=== PATIENT | female | born 1955 | race Caucasian/White ===

== ENCOUNTER → 2020-06-26 09:20 | Outpatient (CLI) | payer MEDICARE, SELFPAY ==
--- NOTE | ~2020-06-26 | US_ITS ---
EXAMINATION: US thyroid DATE: 06/26/2020 09:36 INDICATION: Nontoxic single thyroid nodule TECHNIQUE: Multiple ultrasound images of the thyroid were obtained. COMPARISON: 03/06/2018 FINDINGS: The right thyroid lobe measures 5.3 x 1.7 x 1.5 cm. The left thyroid lobe measures 5.1 x 2.8 x 2.2 c m. 3.2 x 2.7 x 2.3 cm wider than tall predominant solid heterogeneously isoechoic nodule with smooth margins and without echogenic foci in the left thyroid (TI-RADS 3, mildly suspicious, FNA if >=2.5 c m, annual followup is >1.5 cm). This nodule has been previously biopsied with pathology read as mariel gn follicular nodule however has increased in size by greater than 20% in each dimension from previo us measurements of 2.6 x 2.1 x 1.8. 1.2 cm wider than tall solid hypoechoic nodule without echogenic foci in the smooth margins. (TI-RADS 4, moderately suspicious , FNA if >=1.5 cm, annual followup is > 1 cm) in the superior right thyroid lobe. Smaller 1 cm and 5 mm solid isoechoic TI RADS 3 nodules in the right thyroid lobe. There is normal echotexture, echogenicity and vascular flow throughout the th yroid gland. IMPRESSION: 1. Multinodular goiter. Consider ultrasound-guided rebiopsy of the 3.2 cm TI RADS 3 left thyroid nodu le which was previously biopsied demonstrating benign follicular nodule but which has significantly increased in size since the most recent study. Reviewed, dictated and finalized at location . AL CEO IMPRESSION: 1. Multinodular goiter. Consider ultrasound-guided rebiopsy of the 3.2 cm TI RA DS 3 left thyroid nodule which was previously biopsied demonstrating benign fo llicular nodule but which has significantly increased in size since the most r ecent study.
== END ==
PROVIDERS: Visit Provider Nurse Practitioner
DX: E04.2 Nontoxic multinodular goiter (principal)
CPT/HCPCS: 76536

== ENCOUNTER → 2020-10-14 09:10 | Outpatient (CLI) | payer MEDICARE, SELFPAY ==
--- NOTE | ~2020-10-14 | XR_ITS ---
EXAMINATION: XR lumbar spine min 4V DATE: 10/14/2020 09:28 INDICATION: Low back pain TECHNIQUE: Anteroposterior, lateral, and bilateral oblique views of the lumbar spine, and cone-down l ateral view of the lumbosacral junction were obtained. COMPARISON: 11/23/2016 FINDINGS: There are 2 mm of stable retrolisthesis of L5 on S1. Vertebral body alignment is otherwise takes maintained. There is mild loss of intervertebral disc space height throughout the lumbar spine. The vertebral body heights are normal. No fracture is identified. Small degenerative osteophytes pro ject from the anterior endplates of multiple vertebral bodies. There is mild facet osteoarthritis of the lower lumbar spine. The bowel gas pattern is normal. IMPRESSION: 1. Mild lumbar spondylosis without acute findings or significant interval change. Reviewed, dictated and finalized at location A. NESS RULES DEVELOPER IMPRESSION: 1. Mild lumbar spondylosis without acute findings or significant interval josefina andre
== END ==
PROVIDERS: PCP Family Medicine; Visit Provider Nurse Practitioner
DX: M47.896 Other spondylosis, lumbar region (principal)
CPT/HCPCS: 72110

== ENCOUNTER 2020-11-22 15:00 | Outpatient (RCR) | payer MEDICARE, SELFPAY ==
--- NOTE | 2020-10-21 10:47 | PTOPEVAL ---
Thank you for referring Aram Crawford to [facility].? The patient is scheduled to be seen for therapy? 2x/week for 6 weeks. Please review, sign, date and return this plan of care ABHINAV. I agree with and certify that the following plan of care is medically necessary. Referring Physician Date Attending Provider: Henna Carrera NP Physical Therapy Evaluation Diagnosis yaritza knee pain and back pain Onset 5 months with progression in the past 4 weeks Additional Evaluation Detail no therapy after knee surgery on 06/09/19 Subjective Information She reports limitations with Query Text:As Reported By Patient/ prolonged sitting. She reports Family increased symptoms or pain with walking, negotiating steps, squating, lifting objects, and carrying objects. She has trouble getting off the floor. She c/o sharp pain in the front of her right with various movements. She has trouble getting out of the tub if seated in the tub. 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 She sleeps on her stomach, denies pain in the morning. She is walking her neighborhood in the nice weather. She is only perform seated hamstring stretch and standing hip extension for her exercise. Diagnostic Tests X-Rays For This Problem Yes: Mild lumbar spondylosis Previous Treatments Previous Treatments For This Problem no Pain Assessment Self Report Pain Assessment Left Knee(s) Reported Pain Level 7 Pain Description Aching,Throbbing Pain Frequency Chronic,Continuous Lowest Pain Intensity 2 Greatest Pain Intensity 9 Pain Aggravating Factors ADL's,Bending,Exercise/ Activity,Lifting,Prolonged Position,Sitting,Stair Climbing,Walking,Weight Bearing/Standing Pain Behaviors None Right Knee(s) Reported Pain Level 2 Pain Description Aching,Throbbing Pain Frequency Chronic,Continuous Lowest Pain Intensity 2 Greatest Pain Intensity 8 Pain Aggravating Factors Bending,Exercis
--- NOTE | 2020-11-04 09:28 | PCPTNOTE ---
Patient called and cancelled today's session due to having family in town.
--- NOTE | 2020-11-08 09:01 | PCPTNOTE ---
Patient did not show up for scheduled appointment this date. Called and left message for Pt about missed appointment and upcoming appointment on 11/10/20 @ 16:15. Reminded Pt to please call if unable to make appointment, this is Pt's first N/S.
--- NOTE | 2020-11-22 15:47 | PTOPEVAL ---
Thank you for referring Aram Crawford to [facility].? Aram has attended 7 therapy visit with 2 no show/cancelled visits to address back and knee pain. She demonstrates improved strength of legs and trunk, improved pain and tolerance with daily task. She is indep with her home exercises at this time. She has achieved her therapy goals. Will plan to D/C skilled therapy with [facility] to continue with exercise and home management of pain as needed. Please review, sign, date and return this discharge summary ABHINAV. I agree with and certify that the following plan of care is medically necessary. Referring Physician Date Attending Provider: Henna Carrera NP Physical therapy discharge Note Diagnosis yaritza knee pain and back pain Onset 5 months with progression in the past 4 weeks Additional Evaluation Detail no therapy after knee surgery on 06/09/19 Subjective Information She has not had any knee pain Query Text:As Reported By Patient/ since last week following the Family ice and TENS application. She had a f/u with MD, but no injections given due to improved pain. Reports improved pain and tolerance with walking, standing and steps. She denies any significant limitations with getting on/ off the floor. She was able to take her grandkids to the park and walk without difficulty. Reports only occasional radiating pain into right thigh. Pain Assessment Self Report Pain Assessment Left Knee(s) Reported Pain Level 0 Lowest Pain Intensity 0 Greatest Pain Intensity 0 Right Knee(s) Reported Pain Level 1 Lowest Pain Intensity 0 Greatest Pain Intensity 1 Lower Back Reported Pain Level 1 Lowest Pain Intensity 0 Greatest Pain Intensity 1 Cervical and Lumbar ROM Lumbar ROM Lumbar Flexion Active Floor Lumbar ROM WNL Lumbar Comments no pain with trunk motions Cervical and Lumbar Muscle Testing Upper Abdominal Strength 4 Good Upper Back Extension 4-Good- Lower Back Extension 4-Good- Lower Extremity Muscle Strength Testing Hip Strength Left Hip Flexion Strength 5 Normal Hip Extension Strength 5 Normal Hip Abduction Strength 4- Good - Right Hip Flexion Strength 5 Normal Hip Extension Strength 5 Normal Hip Abduction Strength 3+ Fair + Knee S
== END 2020-11-23 08:10 | disposition home or self-care (01) ==
LOC: ANHPT 15:00
PROVIDERS: PCP Family Medicine; Visit Provider Nurse Practitioner
DX: M54.5 Low back pain (principal); M25.561 Pain in right knee; M25.562 Pain in left knee
CPT/HCPCS: 97014; 97110; 97112; 97140; 97162; G0283

== ENCOUNTER 2021-01-26 13:05 | Outpatient (CLI) | payer MEDICARE, SELFPAY ==
--- NOTE | ~2021-01-26 | US_ITS ---
EXAMINATION: US FNA w image guidance DATE: 01/26/2021 14:59 INDICATION: Enlarging left thyroid mass TECHNIQUE: A time-out was performed to verify the patient's name, date of , and procedure to be performed . The procedure and its benefits and risks were discussed with the patient. Risks specifically discus sed included bleeding and infection. The patient understood the risks and agreed to proceed. The neck was prepped and draped in the usual sterile manner. 3 mL 1% lidocaine was used for local anesthesia . 6 passes were made with a 25G needle into the lesion. Appropriate needle location was documented with continuous sonographic guidance. The specimens were passed to the dairy technologist in the room. A sterile bandage was applied. There were no immediate complications. FINDINGS: Grayscale ultrasound images demonstrate biopsy needles advanced into a 3.2 cm solid left thyroid mass . IMPRESSION: 1. Successful ultrasound-guided fine needle aspiration of the enlarging 3.2 cm TI RADS 3 solid left thyroid mass of concern. Reviewed, dictated and finalized at location A.
== END 2021-01-26 13:06 | disposition home or self-care (01) ==
PROVIDERS: PCP Family Medicine; Visit Provider Otolaryngology
DX: E04.1 Nontoxic single thyroid nodule (principal)
CPT/HCPCS: 10005; 88173; 88305

== ENCOUNTER 2021-12-27 16:43 | Outpatient (CLI) | payer MEDICARE, SELFPAY ==
--- NOTE | ~2021-12-27 | DEXA_ITS ---
Bone Density Report Name: ANNA VALENTIN Age: 66 Sex: Female Ethnicity: White Date of : 1955 Indication: postmenopausal; screening for osteoporosis; Referring Provider: MELONIE DOUGLAS Study: Bone densitometry was performed. Exam Date: December 27, 2021 Accession number: [id number] Bone Density: Region BMD T-score Z-score Classification AP Spine(L1-L4) 1.086 0.4 2.4 Normal Femoral Neck (Left) 0.853 0.0 1.8 Normal Total Hip (Left) 0.984 0.3 1.8 Normal Femoral Neck (Right) 0.814 -0.3 1.4 Normal Total Hip (Right) 1.003 0.5 1.9 Normal Total Hip Mean 0.993 0.4 1.9 Normal World Health Organization criteria for BMD impression classify patients as: Normal (T-score at or above -1.0), Osteopenia (T-score between -1.0 and -2.5), or Osteoporosis (T-score at or below -2.5). 10-year Fracture Risk: FRAX not reported because: All T-scores for Spine Total, Hip Total, Femoral Neck at or above -1.0 Previous Exams: Region Exam Age BMD T-score BMD Change BMD Change Date g/cm2 vs Baseline vs Previous AP Spine (L1-L4) 12/27/2021 66 1.086 0.4 0.039 (3.8%)* 0.039 (3.8%)* 01/20/2019 63 1.046 0.0 Total Hip(Left) 12/27/2021 66 0.984 0.3 -0.050 (-4.9%) -0.050 (-4.9%) 01/20/2019 63 1.035 0.8 Total Hip(Right) 12/27/2021 66 1.003 0.5 0.013 (1.3%) 0.013 (1.3%) 01/20/2019 63 0.989 0.4 *Denotes significance at 95% confidence level, LSC for AP Spine = 0.022 g/cm2, LSC for Total Hip = 0.027 g/cm2 Clinical Information Provided by Patient: Has used the following medications: Vitamin D Patient maximum height was 62 Menopause Age: 48 No regular weight bearing exercise Drinks caffeinated beverages Onset of menses at age 9 Number of children 2 Impression: The patient has normal bone mass. The BMD for the Total Hip(Left) decreased, changing by -4.9% since the last DXA exam. Discussion: BONE DENSITY IS ABOVE THE MINIMUM DESIRABLE LEVEL AT ALL SKELETAL SITES TESTED. This patient?s bone mineral density is above the minimum desirable level (T-score -1.0 or better) at all sites measured. The patient should follow a healthful lifestyle (good nutrition with adequate calcium and vitamin D, and appropriate weight-bearing exercise). Follow-Up: Consider repeating this study in 3 to 4 years to reassess this patient's status, or sooner if there is some new clinical indication. Reported by: ROSY on 12/27/2021 5:16:00 PM.
--- NOTE | ~2021-12-27 | MM_ITS ---
EXAMINATION: MM screening lucie BI w rachelle HISTORY: Screening mammogram TECHNIQUE: Craniocaudal and mediolateral oblique 3-D tomosynthesis images were obtained and synthetic 2-D images were generated. CAD analysis was submitted and interpreted. COMPARISON: 01/20/2019, 09/18/2014, 09/15/2013 bilateral screening mammogram examinations BREAST PARENCHYMAL COMPOSITION: There are scattered areas of fibroglandular density. FINDINGS: There are focal asymmetries in the posterior outer breast on craniocaudal views. Diagnostic mammography is recommended, with ultrasound if required. IMPRESSION: 1. Bilateral posterior outer mammographic asymmetries 2. Bilateral diagnostic mammography is recommended, with ultrasound if required BI-RADS Category 0: Incomplete: Needs additional imaging evaluation. Reviewed, dictated and finalized at location A.
== END 2021-12-27 16:44 | disposition home or self-care (01) ==
PROVIDERS: PCP Family Medicine; Visit Provider Nurse Practitioner Family
DX: Z12.31 Encounter for screening mammogram for malignant neoplasm of breast (principal); Z78.0 Asymptomatic menopausal state; R92.8 Other abnormal and inconclusive findings on diagnostic imaging of breast
CPT/HCPCS: 77063; 77067; 77080

== ENCOUNTER 2022-01-13 12:44 | Outpatient (CLI) | payer MEDICARE, SELFPAY ==
--- NOTE | ~2022-01-13 | MM_ITS ---
EXAMINATION: MM diagnostic lucie BI w rachelle HISTORY: Bilateral breast asymmetries on screening mammogram TECHNIQUE: Additional 3-D tomosynthesis images of the breasts were performed and synthetic 2-D images were generated. CAD analysis was submitted and interpreted. COMPARISON: 12/07/2021, 01/20/2019, 09/18/2012, 09/15/2013 FINDINGS: There is a return to baseline fibroglandular appearance with spot compression of the breast s in the areas questioned on screening mammogram. IMPRESSION: 1. No mammographic evidence of malignancy. 2. Recommend routine screening mammography in one year. BI-RADS Category 1: Negative Reviewed, dictated and finalized at location A.
== END 2022-01-13 12:45 | disposition home or self-care (01) ==
LOC: ANHIMG 12:45
PROVIDERS: PCP Family Medicine; Visit Provider Nurse Practitioner Family
DX: R92.8 Other abnormal and inconclusive findings on diagnostic imaging of breast (principal)
CPT/HCPCS: 77062; 77066; G0279

== ENCOUNTER 2022-04-16 15:49 | Emergency (ER) | payer MEDICARE, SELFPAY ==
--- NOTE | ~2022-04-16 | XR_ITS ---
EXAM: XR_CERV2-3V_CR DATE: 04/16/2022 17:20 HISTORY: POSTERIOR L NECK PAIN RADIATES DOWN ARM X 2 DAYS NO INJURY . COMPARISON: None available. FINDINGS: Craniocervical association and atlantoaxial joint are normal. No prevertebral soft tissue swelling. Reversed lordosis. Multilevel grade 1 listheses, presumably on a degenerative basis. Modera te degenerative disc disease at C5-6. Vertebral body heights and are maintained. Multilevel facet scl erosis and hypertrophy. IMPRESSION: No acute fracture or traumatic malalignment in the cervical spine. Degenerative changes d escribed above. Reviewed, dictated and finalized at location K. IMPRESSION: No acute fracture or traumatic malalignment in the cervical spine. Degenerative changes described above.
--- NOTE | ~2022-04-16 | XR_ITS ---
EXAM: XR thoracic spine 3V DATE: 04/16/2022 17:20 HISTORY: POSTERIOR UPPER LEFT BACK PAIN X 2 DAYS NO INJURY . COMPARISON: None available. FINDINGS: Vertebral body alignment intact. Vertebral body heights preserved. Multilevel degenerative disc disease. No traumatic malalignment or fracture. Visualized lung parenchyma is clear. IMPRESSION: No acute fracture or traumatic malalignment in the thoracic spine. Reviewed, dictated and finalized at location K.
[2022-04-16 15:52] VITALS: BP 167/75; PULSE 84; RESP 16; TEMP 36.7; O2SAT 98
--- NOTE | 2022-04-16 16:58 | ED.BACK ---
HPI - Back Pain/Injury General Chief Complaint: Extremity Injury, Upper Stated Complaint: Covid booster on , severe arm/shoulder cate Time Seen by Provider: 04/16/22 16:09 Source: patient Mode of arrival: ambulatory Limitations: no limitations History of Present Illness HPI Narrative: This is a 67 year old female that presents to the ER for left sided upper back pain present over the last couple of days. No known injury or trauma. The pain is a constant ache. Improved with certain positions. Denies decreased ROM or numbness. Related Data Home Medications Medication Instructions Recorded Confirmed meloxicam 15 mg tablet 15 mg PO DAILY PRN 06/16/21 06/16/21 Allergies Allergy/AdvReac Type Severity Reaction Status Date / Time tetracycline Allergy Unknown Unknown Verified 06/16/21 09:43 Review of Systems Review of Systems: CONSTITUTIONAL: Denies fever CARDIOVASCULAR: Denies chest pain SKIN: Denies rash MUSCULOSKELETAL: Reports back pain, joint pain, and myalgia. NEUROLOGIC: Denies numbness, or weakness. All systems reviewed & are unremarkable except as noted in HPI and below PMFSH Past Medical History Medical History (Updated 04/16/22 @ 18:58 by Vivi Sarah PA-C) Enlarged thyroid Restless leg syndrome Thyroid Nodule u/s - 03/2018 Vertigo Vitamin D deficiency Surgical History Surgical History H/O section History of knee surgery History of tonsillectomy Family History Family History Mother Family history of congestive heart failure Father Family history of congestive heart failure Other Family history of Parkinson's disease Family history of cardiovascular disease Hypertension Social History Social History Smoking status: Never smoker Second hand tobacco smoke exposure: No Smoking end date: 08/06/95 Alcohol intake: current Exam Narrative: GENERAL: Well-appearing, well-nourished, and in no acute distress. HEAD: Normocephalic, atraumatic. EYES: EOMI. CHEST: Clear to auscultation. No respiratory distress. No wheezes rales or rhonchi HEART: Regular rate and rhythm. No murmur heard. Normal peripheral pulses. BACK: Tender to palpation of the left thoracic paraspinal musculature EXTREMITIES: Normal range of motion. No edema or erythema. Strength equal in bilateral upper extremities (5/5) SKIN: Warm, dry, no rash. NEURO: No focal deficits. Alert and oriented x3. PSYCH: Normal mood and affect Course Vital Signs Vital signs: Vital Signs Temperature 98.1 F 04/16/22 15:52 Pulse Rate 84 04/16/22 15:52 Respiratory Rate 16 04/16/22 15:52 Blood Pressure 167/75 H 04/16/22 15:52 Pulse Oximetry 98 04/16/22 15:52 Oxygen Delivery Room Air 04/16/22 15:52 Temperature 98.1 F 04/16/22 15:52 Pulse Rate 84 04/16/22 15:52 Respiratory Rate 16 04/16/22 15:52 Blood Pressure 167/75 H 04/16/22 15:52 Pulse Oximetry 98 04/16/22 15:52 Oxygen Delivery Room Air 04/16/22 15:52 MDM - Back Pain/Injury MDM Narrative Medical decision making narrative: Patient presents to the ER for left sided mid back pain present over the last couple of days. No recent injury or trauma. Patient is neurovascularly intact. Denies any chest pain or shortness of breath. X-rays of the thoracic spine without acute findings. X-rays of the cervical spine show muscle spasming and degenerative changes. Patient was updated on case findings. Reports improvement with Tylenol, Toradol and Valium. She is stable and felt appropriate for further outpatient evaluation. Instructed to have close follow-up with her primary doctor. She was given warnings to return to the ER Imaging Data Radiologist's impression: ITS Impressions Cervical Spine X-Ray 04/16/22 18:07 IMPRESSION: No acute fracture or traumatic malalignm
[2022-04-16] MEDS: diazePAM INJ (*CRX) 10 MG/2 ML SYRINGE 5 MG IM (17:19)
[2022-04-16] MEDS: KETOROLAC 30 MG/ML VIAL (*BKC) IM (17:19)
[2022-04-16] MEDS: ACETAMINOPHEN 500 MG TABLET 1000 MG PO (17:19)
== END 2022-04-16 19:11 | disposition home or self-care (01) ==
PROVIDERS: Emergency Provider Emergency Medicine; PCP Family Medicine
DX: M62.838 Other muscle spasm (principal); M50.33 Other cervical disc degeneration, cervicothoracic region
CPT/HCPCS: 72040; 72072; 96372; 99284; A9270; J1885; J3360

== ENCOUNTER 2022-05-05 14:15 | Outpatient (RCR) | payer MEDICARE, SELFPAY ==
--- NOTE | 2022-05-05 16:54 | PTOPEVAL1 ---
Assessment and note entered by Georges Jones, PT, DPT Evaluation Information Assessment Status Evaluation Diagnosis L shoulder pain Subjective Information Pt states on a she got a Covid vaccine, she states by Sunday her pain was so bad she went to the emergency room. She states the ED game her a combination of pain medication and nothing worked, her ROOFING SUPERVISOR also gave her medication without relief. She states she has tried ice, heat, chiropractic, muscle relaxers, and multiple prescribed steroid packs and nothing has helped. She states her arm, shoulder, and now her neck are all in a constant pain. She report getting 2-3 hours of consistent sleep a night. She states she cries daily d/t the pain. She does report when her arm is over her head she gets some relief. Reported Pain Level Pain Score 9: Self Report Assessment PT Clinical Summary Aram is a 67 y/o who is previously healthy who presents to therapy today for her initial evaluation with a diagnosis of a strain of the L arm and shoulder. She demonstrations yaritza shoulder strength that is WNL, shoulder, elbow, wrist, and cervical ROM that is all WNL, she declines numbness or tingling. She demonstrates normal mobility with passive cervical ROM and with intervertebral side glides. Today she demonstrates pain that can be reproduced, but is being reproduced with inappropriate provocation test. She reports decreased pain when her arm is placed on top of her head, but no other tests to rule in thoracic outlet syndrome are positive. She reports tenderness to palpation of her extensor carpi radialis but this pain is not altered with resistance or overpressure. Continuation of skilled physical therapy services are indicated to further investigate her symptoms and to help ruling in/out a mechanical cause of her symptoms. Plan of Care Interventions Electrical Stimulation,Hot Pack/Cold Pack,Manual Therapy,Neuro Re-education,Patient/Caregiver Educati,Therapeutic Activities,Therapeutic Exercise PT Services Indicated Yes Treatment Frequency and 1x/wk for 4 wks Duration These treatments will address the objective and functional deficits as defined above. The patient will be advanced safely and appropriately in order for the patient to progress towards his/her prior level of function. Additional exercises will be introduced and as well as a comprehensive home exercise program upon di
--- NOTE | 2022-06-02 09:01 | PCPTNOTE ---
Patient called & cancelled scheduled appointment this date due to having to watch her grandchild.
--- NOTE | 2022-07-12 08:38 | PTOPDC ---
Assessment and note entered by Georges Jones, PT, DPT Evaluation Information Assessment Status Discharge - Pt Not Present Diagnosis L shoulder pain Subjective Information Called and spoke with patient, she states she is no longer having pain and does not need to return to therapy. Assessment PT Clinical Summary Aram completed her physical therapy evaluation on 05/05/22 and did not complete any treatments. She will be discharged at this time.
== END 2022-07-12 09:12 | disposition home or self-care (01) ==
LOC: ANHGOSHPT 14:15
PROVIDERS: PCP Family Medicine; Visit Provider Nurse Practitioner Family
DX: S46.812D Strain of other muscles, fascia and tendons at shoulder and upper arm level, left arm, subsequent encounter (principal)
CPT/HCPCS: 97162

== ENCOUNTER 2022-08-14 08:32 | Day surgery (SDC) | payer MEDICARE, SELFPAY ==
[2022-07-18 11:24] VITALS: BMI 27.6
[2022-07-25 08:51] VITALS: BMI 27.5
--- NOTE | 2022-08-11 08:37 | P.PNAN_ITS ---
Anes - Initial Pre Proc Eval Procedure: Operation Date: 08/14/22 10:30 Proposed Procedures p Screening Colonoscopy - Fredy Garza MD Date/Time: 08/11/22 08:37 Surgeon: Fredy Garza MD Pre Op Diagnosis: Neoplasm Screening Patient Data Age: 67 Gender: F Height: 1.55 m Weight: 66 kg Allergies Allergy/AdvReac Type Severity Reaction Status Date / Time tetracycline Allergy Unknown Unknown Verified 08/14/22 09:14 Home Medications Medication Instructions Recorded Confirmed Type cholecalciferol (vitamin D3) 50 100 mcg PO DAILY #90 caps 06/20/21 07/25/22 Rx mcg (2,000 unit) capsule sodium,potassium,mag sulfates 17.5 See Rx Instructions PO .COMPLEX 07/18/22 07/25/22 Rx gram-3.13 gram-1.6 gram oral soln #354 mL (Suprep Bowel Prep Kit) ropinirole 0.5 mg tablet 0.5 mg PO TID #270 tabs 07/24/22 07/25/22 Rx Patient hx anesthesia problems: none Family hx anesthesia problems: none Results Review: All pre-operative results and documents have been reviewed as part of the pre- operative evaluation. [facility] Past Medical History Medical History Enlarged thyroid Restless leg syndrome Thyroid Nodule u/s - 03/2018 Vertigo Vitamin D deficiency Surgical History Surgical History H/O section History of knee surgery History of tonsillectomy Family History Family History Mother Family history of congestive heart failure Father Family history of congestive heart failure Other Family history of Parkinson's disease Family history of cardiovascular disease Hypertension Social History Social History Smoking status: Former smoker Tobacco type: cigarettes Second hand tobacco smoke exposure: No Smoking end date: 08/06/95 Alcohol intake: current Alcohol use details: rarely Substance use: never Substance use type: does not use Living arrangements: with family Gender identity (if verbalized by the patient): Female Spiritual care concerns: No Agree to blood products: Yes Anes - Eval Final PreProcedure Day of Procedure 08/11/22 08:37 Patient weight: overweight Heart: regular rate and rhythm Lungs: clear to auscultation Airway: Mallampati scale class II Neurological: alert and oriented Last oral intake: >/= 8 hours ASA classification: II Emergent: no Anesthetic plan: proceed Anesthesia type and monitoring: general GIVS and standard monitoring Results Review: All pre-operative results and documents have been reviewed as part of the pre- operative evaluation. Informed Consent: The patient's anesthetic plan and its attendant risks and benefits were discussed with the patient/family/POA. Questions were solicited and answers provided to the satisfaction of the patient/family/POA.
[2022-08-14 09:10] VITALS: BP 99/74; PULSE 93; RESP 20; TEMP 36.1; O2SAT 100
[2022-08-14] MEDS: LACTATED RINGERS 1,000 ML 150 ML IV CONT (09:30)
--- NOTE | 2022-08-14 09:32 | PM.HPGS ---
History of Present Illness History of Present Illness Consent: Risks, benefits, and alternatives have been discussed and questions answered. Patient agrees to proceed with procedure. Chief complaint: Neoplasm Screening Narrative: Aram Crawford is a 67 year old female Presents for screening colonoscopy. She patient's current weight appetite and bowel movements are normal. Patient denies abdominal pain. She has had no bleeding. Family history is noncontributory. Patient's previous colonoscopy 2009 was unremarkable. Review of Systems Review of Systems: Review of systems noncontributory. [facility] Past Medical History Medical History Enlarged thyroid Restless leg syndrome Thyroid Nodule u/s - 03/2018 Vertigo Vitamin D deficiency Surgical History Surgical History H/O section History of knee surgery History of tonsillectomy Family History Family History Mother Family history of congestive heart failure Father Family history of congestive heart failure Other Family history of Parkinson's disease Family history of cardiovascular disease Hypertension Social History Social History Smoking status: Former smoker Tobacco type: cigarettes Second hand tobacco smoke exposure: No Smoking end date: 08/06/95 Alcohol intake: current Alcohol use details: rarely Substance use: never Substance use type: does not use Living arrangements: with family Gender identity (if verbalized by the patient): Female Spiritual care concerns: No Agree to blood products: Yes Meds Home Medications and Allergies Home Medications Medication Instructions Recorded Confirmed Type cholecalciferol (vitamin D3) 50 100 mcg PO DAILY #90 caps 06/20/21 07/25/22 Rx mcg (2,000 unit) capsule sodium,potassium,mag sulfates 17.5 See Rx Instructions PO .COMPLEX 07/18/22 07/25/22 Rx gram-3.13 gram-1.6 gram oral soln #354 mL (Suprep Bowel Prep Kit) ropinirole 0.5 mg tablet 0.5 mg PO TID #270 tabs 07/24/22 07/25/22 Rx Allergies Allergy/AdvReac Type Severity Reaction Status Date / Time tetracycline Allergy Unknown Unknown Verified 08/14/22 09:14 Vital Signs Vital Signs - 24 hr 08/14/22 09:10 Temperature 97.0 F L Pulse Rate 93 Respiratory Rate 20 Blood Pressure 99/74 L Pulse Oximetry 100 Oxygen Delivery Room Air Exam Narrative: Physical exam reveals patient to be alert. Vital signs stable. HEENT exam is unremarkable. Patient is anicteric. Lungs are clear to auscultation and percussion. Heart is without murmur or extra sounds. Abdomen bowel sounds present soft nontender with no organomegaly. Digital external rectal exam is normal. Assessment and Plan Assessment and plan (1) Encounter for screening colonoscopy: Code(s): Z12.11 - Encounter for screening for malignant neoplasm of colon Status: Acute Assessment and Plan: Patient presents today for screening colonoscopy. She appears to be at average risk for colon polyps. Further recommendations may be given after endoscopy.
[2022-08-14 10:30] VITALS: BP 116/63; PULSE 82; RESP 20; O2SAT 98
[2022-08-14 10:45] VITALS: BP 106/76; PULSE 85; RESP 18; O2SAT 100
[2022-08-14 10:50] VITALS: BP 126/76; PULSE 79; RESP 18; O2SAT 100
--- NOTE | 2022-08-14 12:19 | WPDANESPN ---
Anes - Prog Note Post-Op Date/Time: 08/14/22 12:19 Cardiovascular status: normal Respiratory status: normal Airway patency: baseline Mental status: baseline Post-Op hydration status: normal Vital Signs: Last Vital Signs Temp 36.1 C L 08/14/22 09:10 Pulse 79 08/14/22 10:50 Resp 18 08/14/22 10:50 BP 126/76 08/14/22 10:50 Pulse Ox 100 08/14/22 10:50 O2 Del Method Room Air 08/14/22 10:50 Pain Score (VAS): 0 Post-procedural complaints: none Patient Feedback: Patient satisfied with anesthetic care. Other Findings: Patient vital signs back to baseline. Patient denies nausea and vomiting. Patient's pain under control. Patient OK for discharge.
== END 2022-08-14 11:13 | disposition home or self-care (01) ==
PROVIDERS: PCP Family Medicine; Visit Provider Internal Medicine Gastroenterology
PROC: 0DJD8ZZ Inspection of Lower Intestinal Tract, Via Natural or Artificial Opening Endoscopic (ICD-10-PCS; CPT 45378; principal; 2022-08-14 10:30)
DX: Z12.11 Encounter for screening for malignant neoplasm of colon (principal)
CPT/HCPCS: 45385

== ENCOUNTER 2022-08-14 09:00 | Outpatient (NON) | payer MEDICARE, SELFPAY | END 2022-08-14 09:01 | disposition home or self-care (01) | LOC: ANHLAB 08-15 08:17 | PROVIDERS: PCP Family Medicine; Visit Provider Internal Medicine Gastroenterology | DX: Z12.11 Encounter for screening for malignant neoplasm of colon (principal) | CPT/HCPCS: 88305 ==

== ENCOUNTER 2023-09-07 12:43 | Outpatient (CLI) | payer MEDICARE, SELFPAY ==
--- NOTE | ~2023-09-07 | US_ITS ---
EXAMINATION: US FNA w image guidance DATE: 09/07/2023 13:33 INDICATION: Nontoxic single thyroid nodule. TECHNIQUE: The procedure and its benefits and risks were discussed with the patient. Risks specifically discusse d included bleeding. The patient verbalized understanding of the risks and agreed to proceed. The nec k was prepped and draped in the usual sterile manner. 1% lidocaine was used for local anesthesia. S ix passes were made with a 25G needle into the lesion under ultrasound guidance. There were no immed iate complications. FINDINGS: Grayscale ultrasound images demonstrate needles advanced into a 3.5 cm nodule in left thyroid lobe fo r biopsy. IMPRESSION: 1. Ultrasound-guided fine needle aspiration of a left thyroid nodule. Reviewed, dictated and finalized at location A. [address]
== END 2023-09-07 12:44 | disposition home or self-care (01) ==
PROVIDERS: PCP Family Medicine; Visit Provider Otolaryngology
DX: E04.1 Nontoxic single thyroid nodule (principal)
CPT/HCPCS: 10005; 88172; 88173; 88305

== ENCOUNTER 2024-06-10 15:39 | Outpatient (CLI) | payer MEDICARE, SELFPAY ==
--- NOTE | ~2024-06-10 | MM_ITS ---
EXAMINATION: MM screening lucie BI w rachelle HISTORY: Screening TECHNIQUE: Craniocaudal and mediolateral oblique 3-D tomosynthesis images were obtained and synthetic 2-D images were generated. CAD analysis was submitted and interpreted. COMPARISON: Comparison to multiple prior studies sequentially, with oldest reviewed study dated 09/18. BREAST PARENCHYMAL COMPOSITION: Not dense: There are scattered areas of fibroglandular density. FINDINGS: There is no evidence of suspicious mass, calcification, or architectural distortion to sugg est malignancy in either breast. There has been no suspicious interval change. IMPRESSION: 1. No mammographic evidence of malignancy. 2. Recommend routine screening mammography in one year. BI-RADS Category 1: Negative Reviewed, dictated and finalized at location B. [facility]
== END 2024-06-10 15:40 | disposition home or self-care (01) ==
LOC: ANHIMG 15:40
PROVIDERS: PCP Family Medicine; Visit Provider Nurse Practitioner
DX: Z12.31 Encounter for screening mammogram for malignant neoplasm of breast (principal)
CPT/HCPCS: 77063; 77067

== ENCOUNTER 2025-01-20 09:47 | Outpatient (CLI) | payer MEDICARE, SELFPAY ==
--- NOTE | ~2025-01-20 | DEXA_ITS ---
Bone Density Report Name: ANNA VALENTIN Age: 69 Sex: Female Ethnicity: White Date of : 1955 Indication: postmenopausal; screening for osteoporosis; Referring Provider: MELONIE DOUGLAS Study: Bone densitometry was performed. Exam Date: January 20, 2025 Accession number: [id number] Bone Density: Region BMD T-score Z-score Classification AP Spine(L1-L4) 1.046 0.0 2.2 Normal Femoral Neck (Left) 0.842 -0.1 1.8 Normal Total Hip (Left) 1.027 0.7 2.3 Normal Femoral Neck (Right) 0.850 0.0 1.9 Normal Total Hip (Right) 0.984 0.3 2.0 Normal Total Hip Mean 1.006 0.5 2.2 Normal World Health Organization criteria for BMD impression classify patients as: Normal (T-score at or above -1.0), Osteopenia (T-score between -1.0 and -2.5), or Osteoporosis (T-score at or below -2.5). 10-year Fracture Risk: FRAX not reported because: All T-scores for Spine Total, Hip Total, Femoral Neck at or above -1.0 Previous Exams: Region Exam Age BMD T-score BMD Change BMD Change Date g/cm2 vs Baseline vs Previous AP Spine (L1-L4) 01/20/2025 69 1.046 0.0 0.000 (0.0%) -0.040 (-3.6%) 12/27/2021 66 1.086 0.4 0.039 (3.8%)* 0.039 (3.8%)* 01/20/2019 63 1.046 0.0 Total Hip(Left) 01/20/2025 69 1.027 0.7 -0.007 (-0.7%) 0.043 (4.4%)* 12/27/2021 66 0.984 0.3 -0.050 (-4.9%) -0.050 (-4.9%) 01/20/2019 63 1.035 0.8 Total Hip(Right) 01/20/2025 69 0.984 0.3 -0.005 (-0.5%) -0.018 (-1.8%) 12/27/2021 66 1.003 0.5 0.013 (1.3%) 0.013 (1.3%) 01/20/2019 63 0.989 0.4 *Denotes significance at 95% confidence level, LSC for AP Spine = 0.022 g/cm2, LSC for Total Hip = 0.027 g/cm2 Clinical Information Provided by Patient: Has used the following medications: Vitamin D Patient maximum height was 61.5 Menopause Age: 48 No regular weight bearing exercise Drinks caffeinated beverages Onset of menses at age 10 Number of children 2 Impression: The patient has normal bone mass. The BMD for the AP Spine (L1-L4) decreased, changing by -3.6% since the last DXA exam. Discussion: BONE DENSITY IS ABOVE THE MINIMUM DESIRABLE LEVEL AT ALL SKELETAL SITES TESTED. This patient?s bone mineral density is above the minimum desirable level (T-score -1.0 or better) at all sites measured. The patient should follow a healthful lifestyle (good nutrition with adequate calcium and vitamin D, and appropriate weight-bearing exercise). Follow-Up: Consider repeating this study in 3 to 4 years to reassess this patient's status, or sooner if there is some new clinical indication. Reported by: TORRI on 01/20/2025 10:35:00 AM. Reviewed, dictated and finalized at location A.
--- OUTSIDE RECORDS SUMMARY | 2025-01-20 10:48 | XMS_ITS | Clinical Summary ---
Author Organization [facility] [employer] Address [address] [place] [address] Care Team Providers Care Montessori Lead Teacher Name Role Phone Dipak Robertson DO Unavailable Source Comments [facility] [employer],non-owned Affiliates and Associated Physician Practices is amultiple site organization consisting of ambulatory clinics and hospital sitesin [place], [place], [place] and [place]. This disclosure is being madepursuant to the Care Everywhere program and may not contain all information available regarding this patient. Last updated 18.[facility] [employer] Allergies No known active allergies Medications * Be aware that medications may not be up to date on this document. Alwaysverify current medications with the patient. aspirin (ASPIRIN) 81 MG tablet Take 81 mg by mouth every 24 hours Active gabapentin (NEURONTIN) 300 MG capsule Take by mouth 4 times daily as needed Active vitamin D3 (CHOLECALCIFERO L) 1000 UNITS tablet Take by mouth once daily Active oxyCODONE-aceta minophen (PERCOCET) 5-325 MG tablet Take 1 Tab by mouth every 4 hours as needed for Pain 50 Tab 0 6 Active Additional Information Patient not taking.Reported on 03/30/2016 meloxicam (MOBIC) 15 MG tablet Take 1 Tab by mouth once daily 30 Tab 0 6 Active indomethacin CR 75 MG capsule Take 1 Cap by mouth 2 times daily 60 Cap 0 6 Active Active Problems Problem Noted Date Diagnosed Date Primary osteoarthritis of left knee 03/27/2016 Social History Tobacco Use Types Packs/Day Years Used Date Smoking Tobacco: Never Assessed Comments Unknown Sex and Gender Information Value Date Recorded Sex Assigned at Not on file Legal Sex Female 4:15 PM CDT Gender Identity Not on file Sexual Orientation Not on file Last Filed Vital Signs Vital Sign Reading Time Taken Comments Blood Pressure - - Pulse - - Temperature - - Respiratory Rate - - Oxygen Saturation - - Inhaled Oxygen Concentration - - Weight 56.2 kg (124 lb) 02/08/2016 12:34 PM CDT Height 157.5 cm (5' 2) 02/08/2016 12:34 PM CDT Body Mass Index 22.68 02/08/2016 12:34 PM CDT Plan of Treatment Health Maintenance Due Date Last Done Comments BONE DENSITY TESTING 1955 COLOGUARD (AGES 45-75) - COL ON CA SCREENING 1955 COLON MONITORING 1955 COLONOSCOPY - COLON CA SCREENING 1955 CT COLONOGRAPHY - COLON CA SCREENING 1955 Colorectal Cancer Screening 1955 FIT - COLON CA SCREENING 1955 FLEX SIG - COLON CA SCREENING 1955 LIPID TESTING 1955 MAMMOGRAM 1955 HEPATITIS C SCREENING 01/25/1971 DTAP/TDAP/TD VACCINES (1 - Tdap) 01/30/1972 PNEUMOCOCCAL VACCINE 50+ (1 of 1 - PCV) 2003 ZOSTER VACCINE (1 of 2) 2003 COVID-19 VACCINE ( - 2023-2 5 season) 2024 DEPRESSION SCREENING 08/06/2024 INFLUENZA VACCINE (Season Ended) 2025 Respiratory Syncytial Virus (RSV) Vaccine Pt: or over 60 yrs (1 - 1-dose 75+ series) 01/30/2028 HEPATITIS B VACCINE Aged Out No longe r eligible based on patient's age to complete this topic HIB VACCINE Aged Out No longer eligi ble based on patient's age to complete this topic HPV VACCINE Aged Out No longer eligi ble based on patient's age to complete this topic MENINGOCOCCAL (Group B) VACC INE SHARED DECISION-MAKING Aged Out No longer eligibl e based on patient's age to complete this topic MENINGOCOCCAL GROUPS A/C/Y/W VACCINE Aged Out No longer eligible b ased on patient's age to complete this topic Insurance [facility] MANAGED MEDICARE ADV [facility] MANAGED MEDICARE ADV Care Teams Montessori Lead Teacher Relationship Specialty Start Date End Date Dipak Robertson DO Orthopedic Surgery 02/08/16
--- OUTSIDE RECORDS SUMMARY | 2025-01-20 10:48 | XMS_ITS | Clinical Summary ---
Author Organization [facility] Address [address], [address] [address] Phone Care Team Providers Care Pump Erector Name Role Phone Unavailable Primary Care Provider Unavailabl e Allergies Active Allergy Reactions Criticality Noted Date Comments Tetracycline Unknown 11/30/2015 Medications vitamin D (CHOLECALCIFEROL ) 1000 UNIT Tablet Take 1,000 Units by mouth daily. Active Aspirin 81 MG Tablet Take 81 mg by mouth daily as needed for Pain. Active indomethacin (INDOCIN SR) 75 MG Capsule CR Take 75 mg by mouth 2 times daily as needed. Active gabapentin (NEURONTIN) 300 MG Capsule Take 1 Cap by mouth 4 times daily. 120 Cap 3 06/06/2016 Active Active Problems Problem Noted Date Diagnosed Date Abnormal thyroid ultrasound 12/14/2015 Restless legs syndrome (RLS) 12/02/2015 Chronic pain syndrome 12/02/2015 Vitamin D deficiency 12/02/2015 Hyperuricemia 12/02/2015 Thyroid nodule 12/02/2015 Family History Medical History Relation Name Comments Heart Attack Father Heart Attack Mother Relation Name Status Comments Father Mother Social History Tobacco Use Types Packs/Day Years Used Date Smoking Tobacco: Former Cigarettes Q uit: 12/22/1995 Smokeless Tobacco: Never Alcohol Use Standard Drinks/Week Comments Yes 0 (1 standard drink = 0.6 oz pur e alcohol) Comments No Sex and Gender Information Value Date Recorded Sex Assigned at Not on file Legal Sex Female 5:38 PM CDT Gender Identity Not on file Sexual Orientation Not on file Last Filed Vital Signs Vital Sign Reading Time Taken Comments Blood Pressure 118/58 06/06/2016 8:53 AM CDT Pulse 95 06/06/2016 8:53 AM CDT Temperature 36.6 C (97.8 F) 06/06/2016 8:53 AM CDT Respiratory Rate 16 12/22/2015 10:45 AM CDT Oxygen Saturation 98% 06/06/2016 8:53 AM CDT Inhaled Oxygen Concentration - - Weight 55 kg (121 lb 4.8 oz) 06/06/2016 8:53 AM CDT Height 152.4 cm (5') 06/06/2016 8:53 AM CDT Body Mass Index 23.69 06/06/2016 8:53 AM CDT Plan of Treatment Health Maintenance Due Date Last Done Comments Hepatitis C Virus (HCV) Screening 1955 TdaP Immunization 1955 Cologuard 1998 Colonoscopy 1998 Colorectal Cancer Screening 1998 Immunochemical Fecal Occult Blood 1998 Pneumococcal Immunization (5 0+ years) (1 of 1 - PCV) 2003 Zoster Immunization (1 of 2) 2003 SARS-COV-2 Immunization (1 - 2023- season) 2024 Influenza Immunization (Seas on Ended) 2025 Respiratory Syncytial Virus (RSV) Immunization (Adult) (1 - 1-dose 75+ series) 01/30/2028 Mammogram Discontinued 12/08/2015 Hepatitis B Immunization Aged Out No longer eligible based on patient's age to complete this topic Human Papillomavirus (HPV) Immunization Aged Out No longer eligible b ased on patient's age to complete this topic Meningococcal Immunization (ACWY) Aged Out No longer eligible based on patient's age to complete this topic Rotavirus Immunization Aged Out No lo nger eligible based on patient's age to complete this topic Procedures Procedure Name Priority Date/Time Associated Diagnosis Comments RICHARD SCREENING BILATERAL DIGITAL W CAD Routine 12/08/2015 2:39 PM CDT Encounter for screening mammogram for breast cancer from Last 3 Months or Most Recently Relevant to Health Maintenance Results * RICHARD SCREENING BILATERAL DIGITAL W CAD (12/08/2015 2:39 PM CDT) Anatomical Region Laterality Modality breast Bilateral Mammography 12/08/2015 2:21 PM CDT Narrative 12/15/2015 7:11 AM CDT - RICHARD SCREENING BILATERAL DIGITAL W CAD BILATERAL DIGITAL SCREENING MAMMOGRAM WITH CAD WITH MEDIOLATERAL OBLIQUE CRANIOCAUDAL: 12/08/2015 The study was acquired using digital technology and interpreted from soft copy. Current study was also evaluated with ICAD version 7.2. CLINICAL: Routine screening. Patient has no complaints. No personal history of cancer. No family history of breast cancer. COMPARISONS: Comparison is made to exams dated: 09/18/2014, 09/15/2013, and 06/18/2009 [facility]. BREAST TISSUE:The tissue of both breasts is heterogeneously dense. This may lower the sensitivity of mammography. FINDINGS: No significant masses, calcifications, or other findings are seen in either breast. There has been no significant interval change. IMPRESSION: BI-RAD 1 NEGATIVE There is no mammographic evidence of malignancy. A 1 year screening mammogram is recommended. The patient has been or will be contacted. The patient will be entered into a reminder system with a target due date of 1 year for her next screening exam. Electronically signed by: Jaciel Mitchell M.D. bs/penhumaira:12/14/2015 15:35:07 Salvage Clerk: Sharon FRYE)([place]), [facility] letter sent: Normal Exam Reading location: [facility] BI-RADS: 1 Negative Procedure Note Jaciel Mitchell MD - 12/15/2015 - [facility] SCREENING BILATERAL DIGITAL W CAD BILATERAL DIGITAL SCREENING MAMMOGRAM WITH CAD WITH MEDIOLATERAL OBLIQUE CRANIOCAUDAL: 12/08/2015 The study was acquired using digital technology and interpreted from soft copy. Current study was also evaluated with ICAD version 7.2. CLINICAL: Routine screening. Patient has no complaints. No personal history of cancer. No family history of breast cancer. COMPARISONS: Comparison is made to exams dated: 09/18/2014, 09/15/2013, and 06/18/2009 [facility]. BREAST TISSUE:The tissue of both breasts is heterogeneously dense. This may lower the sensitivity of mammography. FINDINGS: No significant masses, calcifications, or other findings are seen in either breast. There has been no significant interval change. IMPRESSION: BI-RAD 1 NEGATIVE There is no mammographic evidence of malignancy. A 1 year screening mammogram is recommended. The patient has been or will be contacted. The patient will be entered into a reminder system with a target due date of 1 year for her next screening exam. Electronically signed by: Jaciel Mitchell M.D. bs/spenser:12/14/2015 15:35:07 Salvage Clerk: Sharon JOSHI(Ish)([place]), [facility] letter sent: Normal Exam Reading location: [facility] BI-RADS: 1 Negative [facility] Holt MD IMG MAMMO ORDERABLES Marilu l Result from Last 3 Months or Most Recently Relevant to Health Maintenance
== END 2025-01-20 09:48 | disposition home or self-care (01) ==
PROVIDERS: PCP Family Medicine; Visit Provider Nurse Practitioner Family
DX: Z78.0 Asymptomatic menopausal state (principal)
CPT/HCPCS: 77080